=== PATIENT | female | born 1980 | race Caucasian/White ===

== ENCOUNTER 2019-12-31 12:11 | Observation (INO) | payer MEDICAID ==
[~2019-12-31] VITALS: Ht 162.6 cm; Wt 103.0 kg
== END 2019-12-31 13:56 | disposition home or self-care (01) ==
LOC: SPU 12:11
PROVIDERS: ADMIT Obstetrics & Gynecology; ATTEND Obstetrics & Gynecology
DX: O36.8130 Decreased fetal movements, third trimester, not applicable or unspecified (principal); O24.410 Gestational diabetes mellitus in pregnancy, diet controlled; O62.9 Abnormality of forces of labor, unspecified; Z3A.36 36 weeks gestation of pregnancy
CPT/HCPCS: G0378

== ENCOUNTER 2020-01-27 10:19 | Inpatient (IN) | payer MEDICAID, SELFPAY ==
[~2020-01-27] VITALS: Ht 162.6 cm; Wt 108.9 kg
[2020-01-27] MEDS ORDERED: OXYTOCIN/0.9 % SODIUM CHLORIDE 1,000 ML IV SCH (14:08)
[2020-01-27] MEDS ORDERED: TERBUTALINE SULFATE 1 MG/ML VIAL SUBCUT ONE (14:15)
[2020-01-27] MEDS: LR 1,000 ML IV SCH ×2 (14:30→20:50)
[2020-01-27 14:42] LABS: BASOPHILS % (AUTO) 0.4 % (0.0-2.0); EOSINOPHILS # (AUTO) 0.1 K/uL (0.0-0.4); EOSINOPHILS % (AUTO) 1.4 % (0.0-4.0); HEMATOCRIT 35.5 % (36-48); HEMOGLOBIN 12.2 g/dL (12.0-16.0); LYMPHOCYTES # (AUTO) 1.4 K/uL (1.0-5.5); LYMPHOCYTES % (AUTO) 24.3 % (20.5-51.5); MEAN CORPUSCULAR HEMOGLOBIN 31 pg (27-31); MEAN CORPUSCULAR HGB CONC 34 % (32-36); MEAN CORPUSCULAR VOLUME 91 fL (79.0-98.0); MONOCYTES # (AUTO) 0.4 K/uL (0.0-1.0); MONOCYTES % (AUTO) 7.9 % (1.7-9.3); NEUTROPHILS # (AUTO) 3.7 K/uL (1.8-7.7); PLATELET COUNT (AUTO) 124 K/uL (130-430); RED BLOOD CELL COUNT(AUTO) 3.93 MIL/uL (4.2-6.2); RED CELL DISTRIBUTION WIDTH 13.7 % (9.0-15.0); WHITE BLOOD COUNT (AUTO) 5.6 K/uL (4.8-10.8)
[2020-01-27 16:44] VITALS: BP_SYST 135
[2020-01-27] MEDS ORDERED: FLU VACC QS2020-21 (6 mos & up) 0.5 ML/SYRINGE I.M. PRN (17:00)
[2020-01-27] MEDS: MORPHINE SULFATE 10 MG/ML VIAL IVP PRN ×3 (17:50→21:05)
[2020-01-27] MEDS ORDERED: OXYTOCIN 10 UNIT/ML VIAL IM ONE (19:45)
[2020-01-27] MEDS ORDERED: MORPHINE SULFATE 10 MG/ML VIAL IVP ONE (21:45)
[2020-01-27] MEDS ORDERED: OXYCODONE/ACETAMINOPHEN 5-325 TABLET PO PRN ×3 (22:30→23:15)
[2020-01-27] MEDS ORDERED: HYDROcodone/ACETAMIN 5-325 MG TAB (NORCO/ VICODIN) PO PRN (22:30)
[2020-01-27] MEDS ORDERED: MORPHINE 4 MG/ML INJ. SYRINGE IVP ONE (22:45)
[2020-01-27] MEDS ORDERED: OXYTOCIN/0.9 % SODIUM CHLORIDE 1,000 ML IV ONE (23:09)
[2020-01-27] MEDS ORDERED: DERMOPLAST SPRAY TP PRN (23:15)
[2020-01-27] MEDS ORDERED: HYDROCORTISONE 0.5%, 28.35 GM TOPICAL CREAM TP PRN (23:15)
[2020-01-27] MEDS ORDERED: DIPH-TET-PERTUS Vaccine 0.5 ML VIAL (ADACEL) I.M. PRN (23:15)
[2020-01-27] MEDS ORDERED: LANOLIN 7 GM OINT. TP PRN (23:15)
[2020-01-27] MEDS ORDERED: METHYLERGONOVINE MALEATE 0.2 MG/ML AMP IM ONE (23:15)
[2020-01-27] MEDS ORDERED: WITCH HAZEL LEAF 1 MED.PAD MED.PAD TP PRN (23:15)
[2020-01-27] MEDS ORDERED: SENNOSIDES/DOCUSATE SODIUM 1 TAB TABLET(SENOKOT-S) PO PRN (23:15)
[2020-01-27] MEDS ORDERED: ANUSOL 1 EA SUPP.RECT (PREPARATION H) RC PRN (23:15)
[2020-01-27] MEDS ORDERED: MEASLES,MUMPS&RUBELLA VACC/PF 12500 UNIT/0.5 ML VIAL SUBQ PRN (23:15)
[2020-01-27] MEDS ORDERED: RHO(D) IMMUNE GLOBULIN/MALTOSE 1500 UNITS/1.3 ML (WINHRO) IM PRN (23:15)
[2020-01-27] MEDS ORDERED: METHYLERGONOVINE MALEATE 0.2 MG/ML AMP ONE (23:25)
[2020-01-27] MEDS: IBUPROFEN 600 MG TABLET PO SCH (23:50)
[2020-01-28] MEDS: DOCUSATE SODIUM 100 MG CAPSULE PO PRN ×3 (05:39→23:40)
[2020-01-28] MEDS: IBUPROFEN 600 MG TABLET PO SCH ×4 (05:39→23:40)
[2020-01-28 07:02] LABS: HEMATOCRIT 30.6 % (36-48); HEMOGLOBIN 10.7 g/dL (12.0-16.0)
[2020-01-28] MEDS ORDERED: LIDOCAINE 1% 10 MG/ML, 20 ML MDV INJ ONE (07:47)
[2020-01-29] MEDS: IBUPROFEN 600 MG TABLET PO SCH (05:53)
[2020-01-29] MEDS ORDERED: WITCH HAZEL LEAF 1 MED.PAD MED.PAD TP ONE (09:48)
== END 2020-01-29 11:50 | disposition home or self-care (01) | DRG 560 ==
LOC: SPU 13:36
PROVIDERS: ADMIT Obstetrics & Gynecology; ATTEND Obstetrics & Gynecology
PROC: 10E0XZZ Delivery of Products of Conception, External Approach (ICD-10-PCS; principal; 2020-01-27)
DX: O24.429 Gestational diabetes mellitus in childbirth, unspecified control (principal); Z20.828 Contact with and (suspected) exposure to other viral communicable diseases; Z37.0 Single live birth; Z3A.40 40 weeks gestation of pregnancy
CPT/HCPCS: 36415; 76805-TC; 81002-TC; 82962; 85018-TC; 85025; 86592; 86886; 86900; 86901; 94760; J2001; J2210; J2270; J2590; J7120